=== PATIENT | female | born 1945 | race Caucasian/White ===

== ENCOUNTER 2023-03-27 06:27 | Day surgery (SDC) | payer MEDICARE, MEDICAID ==
[2023-03-21 11:31] LABS: BASOPHILS % (AUTO) 0.3 % (0-1); EOSINOPHILS # (AUTO) 0.3 X10'3 (0-0.9); EOSINOPHILS % (AUTO) 3.3 % (0-6); LYMPHOCYTES # (AUTO) 2.3 X10'3 (1.1-4.8); LYMPHOCYTES % (AUTO) 23.6 % (21-51); MEAN CORPUSCULAR HEMOGLOBIN 29.2 PG (27.0-31.0); MEAN CORPUSCULAR HGB CONC 32.6 g/dL (33.0-36.5); MEAN CORPUSCULAR VOLUME 89.5 FL (78-98); MEAN PLATELET VOLUME 7.9 FL (7.4-10.4); MONOCYTES # (AUTO) 1.1 X10'3 (0-0.9); MONOCYTES % (AUTO) 11.6 % (2-12); NEUTROPHILS # (AUTO) 5.9 X10'3 (1.8-7.7); NEUTROPHILS % (AUTO) 61.2 % (42-75); PRE OP HEMATOCRIT 39.1 % (35.0-45.0); PRE OP HEMOGLOBIN 12.7 g/dL (12.0-16.0); PRE OP PLATELET COUNT 276 X10'3 (140-440); PRE OP WHITE BLOOD COUNT 9.6 10'3 (4.8-10.8); RED BLOOD COUNT 4.37 X10'6 (4.20-5.60); RED CELL DISTRIBUTION WIDTH 14.1 % (11.5-14.5)
[2023-03-21 11:47] LABS: ALBUMIN 3.7 G/DL (3.4-5.0); ALBUMIN/GLOBULIN RATIO 1.1 (1.1-1.5); ALKALINE PHOSPHATASE 94 IU/L (46-116); BLOOD UREA NITROGEN 25 MG/DL (7-18); BUN/CREATININE RATIO 24.3 (10.0-20.0); CALCIUM 9.2 MG/DL (8.5-10.1); CHLORIDE 103 MMOL/L (99-107); CREATININE 1.03 MG/DL (0.40-0.90); PRE OP ALT 51 U/L (30-65); PRE OP ANION GAP 6 (8-16); PRE OP AST 31 U/L (10-37); PRE OP BILIRUB, TOTAL 0.5 MG/DL (0.0-1.0); PRE OP GLUCOSE 97 MG/DL (70-104); PRE OP POTASSIUM 5.1 MMOL/L (3.4-5.1); PRE OP SODIUM 138 MMOL/L (135-145); TOTAL CARBON DIOXIDE 29.3 MMOL/L (24-32); eGFR 52 ML/MIN
[~2023-03-27] VITALS: Ht 175.3 cm; Wt 97.8 kg
[2023-03-27] VITALS (9 sets, daily range): BP systolic 110–155; BP diastolic 60–80; PULSE 54–68; RESP 11–16; TEMP 97.5; O2SAT 94–99
[2023-03-27] MEDS: DOCUMENT DATE & TIME OF BETA-BLOCKER PO ONE (05:30)
[2023-03-27] MEDS: cefazolin 2gm/D5W 100mL 100 ML IV ONE (05:30)
[~2023-03-27 06:27] MED LIST: ACET-1025 PO; APIX5TAB3 PO; DULO60CA65 PO; HYDR12.55 PO; LEVO75TA7 PO; LISI20TA28 PO; METO25TA6 PO; OMEP40CA21 PO; PREG100C56 PO; ROPI3TAB21 PO; ROSU10TA28 PO
[2023-03-27] MEDS: famotidine 20mg tablet PO ONE (07:41)
[2023-03-27] MEDS: ringers solution, lacted 1,000 ML IV SCH ×2 (07:41→09:20)
[2023-03-27] MEDS ORDERED: MIDAZolam 1 MG/ML 5ML VIAL ONE (09:10)
[2023-03-27] MEDS ORDERED: fentaNYL/PF 50MCG/1 ML 2ML syringe ONE ×2 (09:10→09:23)
[2023-03-27] MEDS ORDERED: ketorolac trometh. 30mg/ml inj. ONE (09:11)
[2023-03-27] MEDS ORDERED: ondansetron/PF 4mg/2ml inj IV PRN (09:20)
[2023-03-27] MEDS ORDERED: morphine 2 MG/ML inj. syringe IV PRN (09:20)
[2023-03-27] MEDS ORDERED: morphine 4 MG/ML inj SYRINge IV PRN (09:20)
[2023-03-27] MEDS ORDERED: proCHLORperazine 10 MG/2 ml inj IV PRN (09:20)
[2023-03-27] MEDS ORDERED: meperidine/PF 25mg/ml syringe IV PRN ×3 (09:20)
[2023-03-27] MEDS ORDERED: midazolam 1 mg/ML 2ml injection ONE (09:24)
[2023-03-27] MEDS ORDERED: LIDOcaine 0.5% (5mg/ml) 50ml vial ONE (09:28)
[2023-03-27] MEDS: BUPIVAcaine 0.5% inj/PF 30 ml vial IJ ONE (09:42)
[2023-03-27] MEDS ORDERED: BUPIVAcaine/PF 2.5mg/ml (0.25%) 10ml vial ONE (13:27)
== END 2023-03-27 11:14 | disposition home or self-care (01) ==
LOC: PAS 06:27
PROVIDERS: ATTEND Orthopaedic Surgery Hand Surgery
DX: M72.0 Palmar fascial fibromatosis [Dupuytren] (principal); M41.9 Scoliosis, unspecified; M46.1 Sacroiliitis, not elsewhere classified; E11.9 Type 2 diabetes mellitus without complications; I10 Essential (primary) hypertension; I48.91 Unspecified atrial fibrillation; E66.9 Obesity, unspecified; Z68.31 Body mass index [BMI] 31.0-31.9, adult; G89.29 Other chronic pain; G25.81 Restless legs syndrome; F32.A Depression, unspecified; K21.9 Gastro-esophageal reflux disease without esophagitis; Z88.8 Allergy status to other drugs, medicaments and biological substances; Z79.899 Other long term (current) drug therapy; Z79.01 Long term (current) use of anticoagulants; Z98.890 Other specified postprocedural states; Z90.49 Acquired absence of other specified parts of digestive tract; Z85.51 Personal history of malignant neoplasm of bladder
CPT/HCPCS: 26123; 36415; 80053; 82948; 85025; 93005; A6222; J0690; J1885; J2250; J3010; J3490; J7030; J7120; S0020; Z7506; Z7512; A4215; A4618; A6449; A7000